=== PATIENT | male | born 1970 | race Caucasian/White ===

== ENCOUNTER 2017-06-18 14:38 | Outpatient (CLI) | payer OTHER | END 2017-06-18 15:00 | disposition home or self-care (01) | LOC: RAD 14:38 | DX: I11.9 Hypertensive heart disease without heart failure (principal); E11.9 Type 2 diabetes mellitus without complications ==

== ENCOUNTER 2018-08-05 15:45 | Outpatient (CLI) | payer OTHER | END 2018-08-05 15:49 | disposition home or self-care (01) | LOC: RAD 15:45 | DX: R07.89 Other chest pain (principal) ==

== ENCOUNTER 2019-01-11 12:41 | Outpatient (CLI) | payer OTHER | END 2019-01-11 12:50 | disposition home or self-care (01) | LOC: RAD 12:41 | DX: S99.822A Other specified injuries of left foot, initial encounter (principal) ==

== ENCOUNTER 2019-02-22 09:36 | Emergency (ER) | payer OTHER ==
[~2019-02-22] VITALS: Ht 185.4 cm; Wt 90.7 kg
== END 2019-02-22 10:30 | disposition home or self-care (01) ==
LOC: ER 09:36
DX: S50.01XA Contusion of right elbow, initial encounter (principal); S80.01XA Contusion of right knee, initial encounter; W18.39XA Other fall on same level, initial encounter; Y93.89 Activity, other specified; Y92.89 Other specified places as the place of occurrence of the external cause; Y99.8 Other external cause status